=== PATIENT | female | born 1975 | race Two or more races ===

== ENCOUNTER 2023-08-18 16:04 | Emergency (ER) | payer MEDICAID ==
[~2023-08-18] VITALS: Ht 157.5 cm; Wt 72.0 kg
[2023-08-18 17:18] VITALS: BP 140/85; PULSE 66; RESP 18; O2SAT 100
[2023-08-18 17:28] LABS: Urine WBC None Seen /hpf (0 - 5)
[2023-08-18 17:51] LABS: Urine Bacteria FEW /hpf (None Seen); Urine Blood Negative /uL (Negative); Urine Clarity Clear (Clear); Urine Color Colorless (Yellow); Urine Protein, UAD Negative (Negative); Urine Specific Gravity 1.005 (1.001-1.035); Urine Urobilinogen Normal (Negative); Urine pH 6.5 (5.0-8.0)
== END 2023-08-18 18:13 | disposition home or self-care (01) ==
LOC: ER 16:04
DX: M54.59 Other low back pain (principal); R30.0 Dysuria
CPT/HCPCS: 81001